=== PATIENT | male | born 1970 | race Caucasian/White ===

== ENCOUNTER 2020-05-06 20:42 | Emergency (ER) | payer OTHER ==
[~2020-05-06] VITALS: Ht 182.9 cm; Wt 90.7 kg
[2020-05-06 21:02] VITALS: BP 149/89
[2020-05-06] MEDS ORDERED: Clindamycin 900mg 50 ML IV ONE (21:45)
[2020-05-06] MEDS ORDERED: Omnipaque-300 100ml vial INJ ONE (21:45)
[2020-05-06] MEDS ORDERED: Morphine Sulfate 4mg/ml Inj (IV USE ONLY) IVP ONE ×2 (22:15→23:30)
--- NOTE | 2020-05-06 22:17 | Emergency Room Report ---
History of Present Illness General Chief Complaint: Edema Source: Patient (Janice Suresh DO) Present Illness HPI The patient states that he noted some facial pain 4 days ago with some erythema and swelling. 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 He was instructed to get seen for further evaluation. He states that he noted over the last 24 hours the swelling in his face and around his right eye rapidly progressed. He states he has had pain in the face for the past 4 days. He denies fever or chills. Denies nausea or vomiting. He denies neck pain. He does have head pain primarily over his right face and right eye. He denies any changes in his vision. He has no other complaints. (Janice Suresh DO) Allergies: Coded Allergies: TETRACYCLINE (Verified Allergy, Unknown, 05/06/20) COVID-19 Screening Contact w/high risk pt: No Experienced COVID-19 symptoms?: No COVID-19 Testing performed AEROSPACE CONTROL AND WARNING SYSTEMS: No (Janice Suresh DO) Patient History Past Medical History: see triage record, psych hx, other - Hx of substance abuse (takes suboxone and adderall) Social History: Denies: smoking, alcohol use, drug use Reviewed Nursing Documentation: PMH: Agreed; PSxH: Agreed (Janice Suresh DO) Review of Systems All Other Systems: negative except mentioned in HPI (Janice Suresh DO) Physical Exam Vital Signs Date Time Temp Pulse Resp B/P (MAP) Pulse Ox O2 Delivery O2 Flow Rate FiO2 05/06/20 20:42 97.7 89 20 154/94 (114) 99 Room Air Sp02 EP Interpretation: reviewed, normal General Appearance: no apparent distress, alert, GCS 15, non-toxic Head: normocephalic, atraumatic Eyes: right eye other - Proptosis of the R. eye with R. eyelid, betty-orbital and R. facial erythema, swelling and tenderness.; bilateral eye PERRL ENT: hearing grossly normal, normal pharynx, no angioedema, normal voice Neck: normal inspection, full range of motion, supple/symm/no masses Respiratory: chest non-tender, lungs clear, normal breath sounds, no respiratory distress, no retraction, no accessory muscle use, speaking full sen tences Cardiovascular #1: regular rate, rhythm, no edema Gastrointestinal: normal inspection, non-distended Rectal: deferred Musculoskeletal: back normal, normal range of motion, gait/station normal, non- tender Neurologic: alert, motor strength/tone normal, oriented x3, sensory intact, responsive, speech normal Psychiatric: judgement/insight normal, memory normal, mood/affect normal, no suicidal/homicidal ideation Skin: other - See above in Eye exam. (Janice Suresh DO) Medical Decision Making Diagnostic Impression: Primary Impression: Orbital cellulitis Additional Impressions: Periorbital cellulitis Proptosis ER Course I am concerned this patient has a deep fascial abscess with a retro-orbital abscess given the physical exam. The patient is pending CT of the face, head, orbit and sinuses. The patient was given IV clindamycin and pain control. Patient is turned over to Dr. Sheehan, however, anticipate transfer to [facility] for higher level of care for complicated facial and retro-orbital infection. Laboratory Tests Test 05/06/20 22:05 White Blood Count 13.5 K/UL (4.8-10.8) H Red Blood Count 5.03 M/UL (4.70-6.10) Hemoglobin 14.6 G/DL (14.2-18.0) Hematocrit 43.6 % (42.0-52.0) Mean Corpuscular Volume 87 FL (80-99) Mean Corpuscular Hemoglobin 28.9 PG (27.0-31.0) Mean Corpuscular Hemoglobin Concent 33.4 G/DL (32.0-36.0) Red Cell Distribution Width 11.7 % (11.6-14.8) Platelet Count 158 K/UL (150-450) Mean Platelet Volume 7.0 FL (6.5-10.1) Neutrophils (%) (Auto) 76.6 % (45.0-75.0) H Lymphocytes (%) (Auto) 12.4 % (20.0-45.0) L Monocytes (%) (Auto) 8.7 % (1.0-10.0) Eosinophils (%) (Auto) 1.0 % (0.0-3.0) Basophils (%) (Auto) 1.2 % (0.0-2.0) Sodium Level 137 MMOL/L (136-145) Potassium Level 3.7 MMOL/L (3.5-5.1) Chloride Level 98 MMOL/L (98-107) Carbon Dioxide Level 29 MMOL/L (21-32) Anion Gap 10 mmol/L (5-15) Blood Urea Nitrogen 9 mg/dL (7-18) Creatinine 0.9 MG/DL (0.55-1.30) Estimated Glomerular Filtration Rate > 60 mL/min (>60) Glucose Level 120 MG/DL (74-106) H Lactic Acid Level 2.00 mmol/L (0.4-2.0) Calcium Level 8.8 MG/DL (8.5-10.1) Total Bilirubin 0.9 MG/DL (0.2-1.0) Aspartate Amino Transferase (AST) 28 U/L (15-37) Alanine Aminotransferase (ALT) 49 U/L (12-78) Alkaline Phosphatase 75 U/L (46-116) Total Protein 7.9 G/DL (6.4-8.2) Albumin 3.7 G/DL (3.4-5.0) Globulin 4.2 g/dL Albumin/Globulin Ratio 0.9 (1.0-2.7) L Microbiology Date/Time Source Procedure Growth Status 05/06/20 22:30 Nasopharynx SARS-CoV-2 RdRp Gene Assay - Final Complete (Janice Suresh DO) ER Course Total critical care time: Approximately 25 minutes Due to a high probability of clinically significant, life threatening deterioration, the patient required the highest level of preparedness to intervene emergently and I personally spent this critical care time directly and personally managing the patient. This critical care time included obtaining a history, examining the patient, pulse oximetry, ordering and reviewing studies, ordering treatments, evaluating response to treatment and updating management plan as needed, frequent reassessment and discussion with other providers as well as arranging for ultimate disposition. This critical to care time was performed to assess and manage the high probability of life-threatening deterioration that could result in multiorgan failure. This critical care time is separate from the separately billable procedures and treating other patients.3 Patient was signed out to me by the previous physician. He remained hemodynamically stable and neurovascularly intact throughout the rest of his stay in the emergency department. Results of the patient's CT scans showed right-sided preseptal and post septal cellulitis with resulting proptosis. Patient to be transferred to a facility that has ENT and ophthalmology. Patient had received clindamycin. Was also given vancomycin and Zosyn. Blood cultures obtained. At this time patient does not meet sepsis criteria. Awaiting transfer. 348: Multiple attempts were made to transfer the patient to a hospital that has higher level of care including ENT and ophthalmology. Patient received vancomycin, Zosyn, clindamycin in the emergency department. The multiple attempts to transfer the patient were unsuccessful at this point as each hospital was at capacity. The patient said that he would rather leave AGAINST MEDICAL ADVICE and go straight to [facility] on his own instead of waiting for the transfer process to be completed. I told the patient that it was crucial that he goes straight to [facility] or another emergency department, as improper treatment of his orbital and preorbital cellulitis could result in permanent vision loss, permanent eye damage, worsening infection, sepsis, other morbidity and even mortality. He expressed understanding and signed out AGAINST MEDICAL ADVICE. (Parth Sheehan M.D.) CT/MRI/US Diagnostic Results CT/MRI/US Diagnostic Results : Imaging Test Ordered: CT head, face, sinuses, orbit Impression CT head IMPRESSION: No acute hemorrhage, hydrocephalus, or mass effect. Facial findings reported separately. CT max/fac: IMPRESSION: 1. Severe right-sided paranasal sinus disease/sinusitis. 2. Right-sided facial soft tissue swelling/cellulitis and right pre-and post-septal cellulitis resulting in right-sided proptosis. No definite abscess is identified, although limited due to streak artifacts caused by dental hardware. (Janice Suresh DO) Last Vital Signs Date Time Temp Pulse Resp B/P (MAP) Pulse Ox O2 Delivery O2 Flow Rate FiO2 05/06/20 21:02 97.7 85 18 149/89 99 Room Air (Janice Suresh DO) Referrals: NOT CHOSEN JACK/,REFERRING (PCP) Janice Suresh DO May 06, 2020 22:17 Parth Sheehan M.D. May 07, 2020 01:05
[2020-05-06 22:18] LABS: BASOPHILS % (AUTO) 1.2 % (0.0-2.0); HEMATOCRIT 43.6 % (42.0-52.0); HEMOGLOBIN 14.6 G/DL (14.2-18.0); LYMPHOCYTES % (AUTO) 12.4 % (20.0-45.0); MEAN CORPUSCULAR VOLUME 87 FL (80-99); MONOCYTES % (AUTO) 8.7 % (1.0-10.0); NEUTROPHILS % (AUTO) 76.6 % (45.0-75.0); PLATELET COUNT 158 K/UL (150-450); RED BLOOD COUNT 5.03 M/UL (4.70-6.10); RED CELL DISTRIBUTION WIDTH 11.7 % (11.6-14.8); WHITE BLOOD COUNT 13.5 K/UL (4.8-10.8)
[2020-05-06 22:30] VITALS: BP 147/90
[2020-05-06 22:36] LABS: ANION GAP 10 mmol/L (5-15); BLOOD UREA NITROGEN 9 mg/dL (7-18); CALCIUM 8.8 MG/DL (8.5-10.1); CARBON DIOXIDE 29 MMOL/L (21-32); CHLORIDE 98 MMOL/L (98-107); CREATININE 0.9 MG/DL (0.55-1.30); POTASSIUM 3.7 MMOL/L (3.5-5.1); SODIUM 137 MMOL/L (136-145)
[2020-05-06 22:40] LABS: ALANINE AMINOTRANSFERASE 49 U/L (12-78); ALBUMIN 3.7 G/DL (3.4-5.0); ALBUMIN/GLOBULIN RATIO 0.9 (1.0-2.7); ALKALINE PHOSPHATASE 75 U/L (46-116); ASPARTATE AMINO TRANSFERASE 28 U/L (15-37); BILIRUBIN,TOTAL 0.9 MG/DL (0.2-1.0)
[2020-05-06] MEDS ORDERED: Morphine Sulfate 4mg/ml Inj (IV USE ONLY) ONE (23:19)
--- NOTE | 2020-05-06 23:44 | Diagnostic Imaging Report ---
EXAM: CT Head Without and With Intravenous Contrast CLINICAL HISTORY: ABSCESS TECHNIQUE: Axial computed tomography images of the head/brain without and with intravenous contrast. CTDI is 53.4 mGy and DLP is 965.3 mGy-cm. One or more of the following dose reduction techniques were used: automated exposure control, adjustment of the mA and/or kV according to patient size, use of iterative reconstruction technique. COMPARISON: No relevant prior studies available. FINDINGS: Brain: No hemorrhage. No significant white matter disease. No edema. Normal enhancement. Ventricles: No hydrocephalus. Bones/joints: Unremarkable. Soft tissues: Unremarkable. Mastoid air cells: Clear. IMPRESSION: No acute hemorrhage, hydrocephalus, or mass effect. Facial findings reported separately.
--- NOTE | 2020-05-06 23:48 | Diagnostic Imaging Report ---
EXAM: CT Maxillofacial With Intravenous Contrast CLINICAL HISTORY: ABSCESS TECHNIQUE: Axial computed tomography images of the face with intravenous contrast. CTDI is 50.2 mGy and DLP is 1545.2 mGy-cm. One or more of the following dose reduction techniques were used: automated exposure control, adjustment of the mA and/or kV according to patient size, use of iterative reconstruction technique. COMPARISON: No relevant prior studies available. FINDINGS: Severely opacified right ethmoid/maxillary sinus and nasal cavity. Mildly opacified bilateral frontal, left ethmoid, and maxillary sinuses. Right-sided facial soft tissue swelling with extension into the right preseptal and post-septal space. Right-sided proptosis. No definite drainable abscess is identified. IMPRESSION: 1. Severe right-sided paranasal sinus disease/sinusitis. 2. Right-sided facial soft tissue swelling/cellulitis and right pre-and post-septal cellulitis resulting in right-sided proptosis. No definite abscess is identified, although limited due to streak artifacts caused by dental hardware.
[2020-05-07 00:30] VITALS: BP 139/90
[2020-05-07] MEDS ORDERED: Piperacillin/Tazobactam 3.375 GM in NS 110 ML IVPB ONE (00:30)
[2020-05-07] MEDS ORDERED: HYDROmorphone 1mg/ml Carpuject IVP ONE ×2 (00:30→01:30)
[2020-05-07] MEDS ORDERED: Vancomycin 1 GM in NS 275 ML IVPB ONE (00:30)
[2020-05-07 02:30] VITALS: BP 134/86
[2020-05-07 04:00] VITALS: BP 134/85
== END 2020-05-07 04:00 | disposition left against medical advice (07) ==
LOC: EMR 21:08
DX: H05.011 Cellulitis of right orbit (principal); L03.213 Periorbital cellulitis; H05.20 Unspecified exophthalmos; Z88.1 Allergy status to other antibiotic agents
CPT/HCPCS: 36415; 70470; 70487; 80053; 83605; 85025; 96365; 96367; 96368; 96375; 96376; 99291; J1170; J2270; J2405; J2543; J3370; J7050; Q9965; Q9967; S0077; U0002